=== PATIENT | female | born 1955 | race Caucasian/White ===

== ENCOUNTER 2021-08-11 15:43 | Emergency (ER) | payer BC ==
[~2021-08-11] VITALS: Ht 167.6 cm; Wt 79.4 kg
[2021-08-11] MEDS ORDERED: PLAVIX75 MG PO (17:22)
[2021-08-11] MEDS ORDERED: BUTALB-CAFF-AC1 EACH PO (17:22)
[2021-08-11] MEDS ORDERED: CARVEDILOL PO (17:23)
[2021-08-11] MEDS ORDERED: AMLODIPINE BESYL5 MG PO (17:23)
[2021-08-11] MEDS ORDERED: LOSA25 PO (17:24)
[2021-08-11] MEDS ORDERED: CLONAZEPAM1 MG PO (17:24)
[2021-08-11] MEDS ORDERED: INSULIN AS100 UNIT/7 (17:24)
[2021-08-11] MEDS ORDERED: PLAVIX75 MG (17:25)
[2021-08-11] MEDS ORDERED: Vitamin D2000 UNIT PO (17:27)
[2021-08-11] MEDS ORDERED: CLON1 PO (17:27)
[2021-08-11] MEDS ORDERED: FURO20 PO (17:27)
[2021-08-11] MEDS ORDERED: ZEBUTAL 50-3251 EAC2 (17:28)
[2021-08-11] MEDS ORDERED: PROM25 PO (17:28)
[2021-08-11] MEDS ORDERED: Norco 5-325 Ta1 EACH PO (17:43)
== END 2021-08-11 17:56 | disposition home or self-care (01) ==
LOC: ER 15:43
DX: K08.89 Other specified disorders of teeth and supporting structures (principal); R68.84 Jaw pain; Z88.2 Allergy status to sulfonamides; Z88.0 Allergy status to penicillin; Z88.1 Allergy status to other antibiotic agents; Z79.899 Other long term (current) drug therapy; E11.9 Type 2 diabetes mellitus without complications; I10 Essential (primary) hypertension; I25.10 Atherosclerotic heart disease of native coronary artery without angina pectoris
CPT/HCPCS: 99283